=== PATIENT | male | born 1985 | race Caucasian/White ===

== ENCOUNTER 2017-06-07 17:15 | Emergency (ER) | payer SELFPAY ==
[~2017-06-07] VITALS: Ht 193 cm; Wt 66.3 kg
[~2017-06-07 17:15] MED LIST: Z.0.NO CURRENT MEDS
[2017-06-07 17:17] VITALS: BP 142/83; PULSE 65; RESP 18; TEMP 98.1; O2SAT 99
--- NOTE | 2017-06-07 17:50 | RADRPT ---
EXAM DATE/TIME: 06/07/2017 17:38 [place] COMPARISON: No previous studies available for comparison. INDICATIONS : Pain in right distal 2nd digit after slamming his finger between two tree logs. MEDICAL HISTORY : None. SURGICAL HISTORY : None. ENCOUNTER: Initial ACUITY: 1 day PAIN SCORE: 8/10 LOCATION: Right 2nd digit. FINDINGS: Examination of the second digit of the right hand demonstrates no evidence of fracture or dislocation . No radiopaque foreign bodies are seen. The soft tissues are intact. CONCLUSION: Negative for fracture. Clement Melgoza MD FACR on June 07, 2017 at 17:47 Board Certified Radiologist. This report was verified electronically.
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
[2017-06-07] MEDS ORDERED: ONDANSETRON ODT 4 MG TAB PO ONE (18:15)
== END 2017-06-07 18:46 | disposition home or self-care (01) ==
LOC: PHEFT 17:15
DX: S60.121A Contusion of right index finger with damage to nail, initial encounter (principal); W23.0XXA Caught, crushed, jammed, or pinched between moving objects, initial encounter; F17.290 Nicotine dependence, other tobacco product, uncomplicated
CPT/HCPCS: 11740; 73140